=== PATIENT | male | born 1980 | race Caucasian/White ===

== ENCOUNTER 2021-07-02 15:57 | Outpatient (CLI) | payer MEDICARE, MEDICAID, SELFPAY ==
[2021-07-02 16:20] LABS: Basophils Absolute Auto 0.05 K/mm3 (0.00-0.10); Basophils Percent Auto 0.4 % (0.0-1.0); Eosinophils Absolute Auto 0.13 K/mm3 (0.02-0.50); Hematocrit 52.1 % (40.0-54.0); Hemoglobin 18.4 g/dL (14.0-18.0); Immature Granulocyte Absolute 0.05 K/mm3 (0.00-0.00); Immature Granulocyte Percent A 0.4 % (0.0-0.0); Lymphocytes Absolute Auto 3.11 K/mm3 (1.10-4.50); Lymphocytes Percent Auto 23.5 % (18.0-42.0); Mean Corpuscular HGB Conc 35.3 g/dL (32.0-36.0); Mean Corpuscular Volume 87.9 fL (78.0-102.0); Mean Platelet Volume 9.7 fl (8.7-11.0); Monocytes Absolute Auto 1.26 K/mm3 (0.10-0.90); Monocytes Percent Auto 9.5 % (2.0-11.0); Neutrophils Absolute Auto 8.6 K/mm3 (1.7-7.2); Neutrophils Percent Auto 65.2 % (50.0-70.0); Platelet Count Result 292 K/mm3 (150-420); Red Blood Count 5.93 M/mm3 (4.70-6.10); Red Cell Distribution Width 11.6 % (11.6-14.4); White Blood Count 13.2 K/mm3 (4.8-10.8)
[2021-07-02 16:45] LABS: Add Urine Microscopic? YES; Alanine Aminotransferase 106 U/L (16-63); Albumin Level 4.3 g/dL (3.4-5.0); Alkaline Phosphatase 103 U/L (46-116); Anion Gap 12 mmol/L (8-16); Appearance Urine Clear (Clear); Aspartate Amino Transferase 35 U/L (15-37); Bilirubin Urine Negative (Negative); Bilirubin,Total 0.7 mg/dL (0.00-1.00); Blood Urea Nitrogen 6 mg/dL (7-18); Blood Urine Negative (Negative); Carbon Dioxide 25 mmol/L (21-32); Chloride 101 mmol/L (98-108); Color Urine Yellow (Yellow); Estimated Glomerular Filt Rate > 60; Glucose 127 mg/dL (70-99); Glucose Urine UA Trace (Negative); Ketones Urine Negative (Negative); Leukocyte Esterase Ur Negative (Negative); Nitrate Urine Negative (Negative); Osmolality Calculated 285 mOsm/kg (285-295); Potassium 3.9 mmol/L (3.5-5.1); Protein Urine Negative (Negative); Sodium 138 mmol/L (136-145); Total Protein 7.7 g/dL (6.4-8.2); Urobilinogen Urine 0.2 mg/dL (0.2-1.0); pH Urine 6.5 (5.0-8.0)
[2021-07-02 17:06] LABS: RBC Urine 0-2 /hpf (0-2); Squamous Epithelial Cell Urine Few /hpf (Few); WBC Urine 0-3 /hpf (0-3)
[2021-07-02 17:07] LABS: Bacteria Urine None seen /hpf
[2021-07-04 12:12] LABS: Hemoglobin A1C 6.3 % (<5.7)
== END 2021-07-02 15:58 | disposition home or self-care (01) ==
PROVIDERS: PCP Family Medicine; Visit Provider Family Medicine
DX: N28.89 Other specified disorders of kidney and ureter (principal); R73.9 Hyperglycemia, unspecified
CPT/HCPCS: 36415; 80053; 81001; 83036; 85025; 88108; 88112

== ENCOUNTER 2021-07-06 07:41 | Outpatient (CLI) | payer MEDICARE, MEDICAID, SELFPAY ==
--- NOTE | ~2021-07-06 | CT_ITS ---
EXAMINATION: CT abdomen wo/w con DATE: 07/06/2021 08:35 INDICATION: Right renal mass TECHNIQUE: Computed tomography (CT) of the abdomen was performed without intravenous contrast. CT of the abdomen was then performed with a total of 100 mL Omnipaque 350 intravenous contrast. The dose-le ngth product (DLP) was 2263.80 mGy-cm. Automated exposure control and iterative reconstruction techni que were employed. COMPARISON: None FINDINGS: The lung bases are clear. The heart size is normal. The liver is diffusely low in attenuati on when compared with the spleen, consistent with hepatic steatosis. The spleen, pancreas, gallbladde r, and adrenal glands are normal. There are multiple cystic lesions of the kidneys. The largest is a 5 cm lesion of the right kidney upper pole which measures soft tissue attenuation but is nonenhancin g after contrast administration. Nonobstructing stones of the left kidney measure up to 2 mm. There i s a 2 mm nonobstructing stone of the right kidney. No stones are present in the ureters. There are no pathologically enlarged abdominal lymph nodes. The appendix is normal. IMPRESSION: 1. Multiple simple and proteinaceous cysts of the kidneys. No suspicious renal mass identified. Reviewed, dictated and finalized at location B.
== END 2021-07-06 07:42 | disposition home or self-care (01) ==
LOC: CHSIMG 07:43
PROVIDERS: PCP Family Medicine; Visit Provider Family Medicine
DX: N28.89 Other specified disorders of kidney and ureter (principal)
CPT/HCPCS: 74170; Q9967